=== PATIENT | male | born 1950 | race Caucasian/White ===

== ENCOUNTER → 2017-07-20 | Outpatient (CLI) | payer BC | END | disposition home or self-care (01) | LOC: GMAJ 11:38 | PROVIDERS: ATTEND Family Medicine | DX: Z12.5 Encounter for screening for malignant neoplasm of prostate (principal) ==

== ENCOUNTER → 2018-03-05 | Outpatient (CLI) | payer BC | LOC: GMAJ 10:55 | PROVIDERS: ATTEND Family Medicine | DX: Z12.5 Encounter for screening for malignant neoplasm of prostate (principal) ==

== ENCOUNTER → 2018-04-29 | Outpatient (CLI) | payer BC ==
--- NOTE | 2018-04-29 13:44 | US ---
Exam: Bilateral lower extremity arterial Doppler sonogram CLINICAL HISTORY: Symptoms TECHNIQUE: Doppler sonographic evaluation of the bilateral lower extremities was performed. FINDINGS: Right Submitted sonographic images reveal calcified plaque in the right common femoral and superficial femoral arteries as well as the right popliteal artery. There is slow monophasic flow in vessels below the right knee. The following peak systolic flow flow velocity measurements were obtained: Common femoral artery velocity equals 56 centimeters per second , biphasic. Superficial femoral artery velocity equals 23-46 centimeters per second , biphasic. Popliteal artery velocity equals 23 centimeters per second , monophasic. Peroneal artery velocity equals 19 centimeters per second , monophasic. Posterior tibial artery velocity equals 22 centimeters per second , monophasic. Dorsalis pedis artery velocity equals 12 centimeters per second , monophasic. Left Submitted sonographic images reveal calcified plaque in the left common femoral and superficial femoral arteries with calcified plaque in the left popliteal artery. Positive color flow in the vessels below the left knee. Arterial flow is monophasic throughout the left lower extremity suggesting proximal disease in the pelvis. Correlate with other studies. The following peak systolic flow flow velocity measurements were obtained: Common femoral artery velocity equals 77 centimeters per second , monophasic. Superficial femoral artery velocity equals 18 -104 centimeters per second , monophasic. Popliteal artery velocity equals 21 centimeters per second , monophasic. Peroneal artery velocity equals 16.5 centimeters per second , monophasic. Posterior tibial artery velocity equals eight centimeters per second , monophasic. Dorsalis pedis artery velocity equals 14 centimeters per second , monophasic. IMPRESSION: Low velocity monophasic flow throughout the left lower extremity arteries. Low velocity monophasic flow in the right popliteal artery and in the arteries below the right knee. Electronically signed by: Fito Quintero MD 04/29/2018 1:43 PM CDT
--- NOTE | 2018-04-29 13:48 | US ---
EXAM DESCRIPTION: Carotid Duplex CLINICAL HISTORY: I65.29 COMPARISON: None Available. TECHNIQUE: Carotid Doppler ultrasound FINDINGS: Right Submitted images show no significant stenosis in the common carotid, internal carotid or external carotid arteries. There is calcified plaque in the right carotid bulb and proximal right ICA. No significant area stenosis of the right carotid bulb or proximal internal carotid artery. The following flow velocities were obtained: Common carotid artery peak systolic flow velocity measures 78 centimeters per second. Internal carotid artery peak systolic flow velocity measures 51 centimeters per second. External carotid artery peak systolic flow velocity measures 74 centimeters per second. Flow in the right vertebral artery is antegrade. The right internal carotid to common carotid peak systolic flow velocity ratio equals 0.6 which is normal. Left Submitted images show calcified plaque in the left carotid bulb and proximal left internal and external carotid arteries. No high-grade stenosis. Measurements show 32% area stenosis of the proximal left ICA with 12% area stenosis of the left carotid bulb, not significant. These measurements are made from the images, not by NASCET criteria. The following flow velocities were obtained: Common carotid artery peak systolic flow velocity measures 90 centimeters per second. Internal carotid artery peak systolic flow velocity measures 60 centimeters per second. External carotid artery peak systolic flow velocity measures 74 centimeters per second. Flow in the left vertebral artery is antegrade. The left internal carotid to common carotid peak systolic flow velocity ratio of 0.7 is normal. IMPRESSION: No hemodynamically significant stenosis. Electronically signed by: Fito Quintero MD 04/29/2018 1:47 PM CDT
== END ==
LOC: US 07:57
PROVIDERS: ATTEND Family Medicine
DX: I65.29 Occlusion and stenosis of unspecified carotid artery (principal); I70.211 Atherosclerosis of native arteries of extremities with intermittent claudication, right leg